=== PATIENT | male | born 1975 | race African-American/Black ===

== ENCOUNTER 2019-05-18 21:37 | Emergency (ER) | payer OTHER ==
[~2019-05-18] VITALS: Ht 185.4 cm; Wt 117.9 kg
[~2019-05-18 21:37] MED LIST: CYCLOBENZAPRINE; HYDROCODONE-AP1 EA11 PO
[2019-05-18 22:15] LABS: URINE BILIRUBIN NEGATIVE (Negative); URINE BLOOD TRACE (Negative); URINE CLARITY CLEAR; URINE COLOR YELLOW; URINE GLUCOSE-RANDOM* NEGATIVE (Negative); URINE KETONES NEGATIVE (Negative); URINE LEUKOCYTES-REFLEX NEGATIVE (Negative); URINE NITRITE-REFLEX NEGATIVE (Negative); URINE PROTEIN (DIPSTICK) NEGATIVE (Negative); URINE SPECIFIC GRAVITY 1.025 (1.005-1.035); URINE UROBILINOGEN 0.2 E.U./dl (0.2-1.0)
[2019-05-18 23:40] LABS: ABSOLUTE NEUTROPHILS 2.7 thou/uL (1.4-8.2); BASOPHILS 0.5 % (0.0-2.0); EOSINOPHILS 1.5 % (0.0-3.0); HEMATOCRIT 43.9 % (42.0-52.0); HEMOGLOBIN 13.9 gm/dL (14.0-18.0); MCH 23.6 pg (26.0-34.0); MCHC 31.6 g/dL (28.0-37.0); MCV 74.8 fL (80.0-100.0); MONOCYTES 7.9 % (1.0-8.0); PLATELET COUNT 229 thou/uL (150-400); POLYS 49.1 % (36.0-66.0); RBC 5.87 mil/uL (4.50-6.00); RDW 14.8 % (10.5-14.5); WBC 5.5 thou/uL (4.0-11.0)
[2019-05-18 23:41] LABS: AMP/METHAMP Negative (Negative); BARBITURATES Negative (Negative); BENZODIAZEPINES Negative (Negative); COCAINE Negative (Negative); METHADONE Negative (Negative); OPIATES Negative (Negative); PCP Negative (Negative)
[2019-05-18 23:54] LABS: ANION GAP 8 mmol/L (7-16); BUN 18 mg/dL (7-18); CALCIUM 8.6 mg/dL (8.5-10.1); CHLORIDE 101 mmol/L (98-107); CO2 29 mmol/L (21-32); CREATININE 1.4 mg/dL (0.7-1.3); GLUCOSE 115 mg/dL (74-106); POTASSIUM 4.1 mmol/L (3.5-5.1); SODIUM 138 mmol/L (136-145)
[2019-05-19 00:02] LABS: ALBUMIN 3.8 g/dL (3.4-5.0); LIPASE 161 U/L (73-393); SGOT 51 U/L (15-37); SGPT 51 U/L (30-65); TOTAL BILIRUBIN 0.6 mg/dL (<0.1-1.0); TOTAL PROTEIN 7.5 g/dL (6.4-8.2); TROPONIN-I <0.06 ng/mL (<0.06)
[2019-05-19] MEDS ORDERED: ACETAMINOPHEN-1 EAC1 PO (00:38)
[2019-05-19] MEDS ORDERED: NAPROSYN500 MG PO (00:38)
[2019-05-19 01:30] VITALS: BP 108/69
--- NOTE | 2019-05-22 07:56 | EKG ---
[address] [address] [place] [address] ELECTROCARDIOGRAM REPORT Name: MARTA KISER Room #: DEP [facility]#: [id number] Admission: 05/18/19 Attend Phys: Discharge: 05/19/19 Date of : 73 Report #: [id number] THIS REPORT FOR: //name// [facility] ED Test Date: 2019-05-18 Test Time: 23:48:39 Pat Name: MARTA KISER Department: Room: Gender: Social Media Campaign Manager: queta : 1975 Requested By: Johnny Ogden Order Number: [id number] MD: Reed Cage Measurements Intervals [place] Rate: 58 P: 46 ND: 253 QRS: 25 QRSD: 81 T: 14 QT: 400 QTc: 393 Interpretive Statements Sinus rhythm Prolonged ND interval ST elev, probable normal early repol pattern No previous ECG available for comparison Electronically Signed On 05-22-2019 7:56:35 CDT by Reed Cage [email or web address] <ELECTRONICALLY SIGNED> By: Reed Cage MD, [facility] 05/22/19 [id number] Reed Cage MD, FACC /EPI
== END 2019-05-19 01:30 | disposition home or self-care (01) ==
LOC: ER 21:37
PROVIDERS: Emergency Medicine
DX: R07.81 Pleurodynia (principal); R10.11 Right upper quadrant pain; Z88.0 Allergy status to penicillin